=== PATIENT | male | born 1945 | race Caucasian/White ===

== ENCOUNTER 2016-08-16 15:17 | Emergency (ER) | payer OTHER, MEDICARE ==
[2016-08-16] MEDS ORDERED: CLINDAMYCIN 600 MG/D5W RTU 50 ML IV ONE (15:41)
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
[2016-08-16 16:25] LABS: ABSOLUTE BASOPHILS # (AUTO) 0.1 10^3/uL (0.0-0.2); ABSOLUTE EOSINOPHILS # (AUTO) 0.6 10^3/uL (0.0-0.6); ABSOLUTE LYMPHOCYTES (AUTO) 1.8 10^3/uL (0.5-4.7); ABSOLUTE MONOCYTES (AUTO) 0.8 10^3/uL (0.1-1.4); ABSOLUTE NEUT (AUTO) 4.9 10^3/uL (1.7-8.2); BASOPHILS % (AUTO) 1.3 % (0-2); HEMATOCRIT 45.4 % (37.9-51.0); HEMOGLOBIN 15.6 g/dL (13.5-17.0); HGB HCT DIFFERENCE 1.4; MEAN CORPUSCULAR HEMOGLOBIN 37.2 pg (27.0-33.4); MEAN CORPUSCULAR HGB CONC 34.5 g/dL (32.0-36.0); MEAN CORPUSCULAR VOLUME 108 fl (80-97); MONOCYTES % (AUTO) 9.3 % (3-13); RED CELL DISTRIBUTION WIDTH 13.2 % (11.5-14.0); SEGMENTED NEUTROPHILS % (AUTO) 60.4 % (42-78); WHITE BLOOD COUNT 8.2 10^3/uL (4.0-10.5)
[2016-08-16 16:44] LABS: ALANINE AMINOTRANSFERASE 74 U/L (21-72); ALBUMIN 4.2 g/dL (3.5-5.0); ALKALINE PHOSPHATASE 102 U/L (38-126); ANION GAP 10 (5-19); ASPARTATE AMINO TRANSFERASE 58 U/L (17-59); BILIRUBIN,DIRECT 0.4 mg/dL (0.0-0.4); BILIRUBIN,TOTAL 0.8 mg/dL (0.2-1.3); BLOOD UREA NITROGEN 16 mg/dL (7-20); CALCIUM 9.8 mg/dL (8.4-10.2); CARBON DIOXIDE 29 mmol/L (22-30); CHLORIDE 104 mmol/L (98-107); CREATININE RESULT 0.95 mg/dL (0.52-1.25); GLUCOSE 132 mg/dL (75-110); POTASSIUM 3.6 mmol/L (3.6-5.0); SODIUM 143.3 mmol/L (137-145)
[2016-08-16 17:52] VITALS: BP 132/89
== END 2016-08-16 17:50 | disposition home or self-care (01) ==
LOC: ER 15:17
DX: M79.642 Pain in left hand (principal); S60.512A Abrasion of left hand, initial encounter; L08.9 Local infection of the skin and subcutaneous tissue, unspecified; V22.4XXA Motorcycle driver injured in collision with two- or three-wheeled motor vehicle in traffic accident, initial encounter; F17.210 Nicotine dependence, cigarettes, uncomplicated; I10 Essential (primary) hypertension; J44.9 Chronic obstructive pulmonary disease, unspecified; J45.909 Unspecified asthma, uncomplicated
CPT/HCPCS: 36415; 80053; 85025; 87040; 99283